=== PATIENT | male | born 1935 | race African-American/Black ===

== ENCOUNTER 2018-08-22 10:12 | Outpatient (CLI) | payer BC ==
--- NOTE | 2018-08-22 13:54 | MRI ---
NONCONTRAST ENHANCED MRI BRAIN: HISTORY: Memory loss. TECHNIQUE: Multiplanar, multisequence noncontrast enhanced MR images of the brain obtained. FINDINGS: The images demonstrate diffuse cortical atrophy and deep white matter ischemic changes. No evidence of acute intracranial masses, hemorrhages, or lesions seen. There is diffuse cortical at rophy seen. No significant evidence of intracranial mass lesions seen. No significant evidence of midline shift seen. Normal flow voids seen in the major intracranial vessels. 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 POS: [facility]
== END 2018-08-22 10:13 | disposition home or self-care (01) ==
LOC: BICMRI 10:12
PROVIDERS: ATTEND Family Medicine
DX: R41.3 Other amnesia (principal); G31.9 Degenerative disease of nervous system, unspecified
CPT/HCPCS: 70551